=== PATIENT | female | born 1985 | race African-American/Black ===

== ENCOUNTER 2018-02-28 23:08 | Day surgery (SDC) | payer MEDICARE, MEDICAID ==
[~2018-02-28] VITALS: Ht 160 cm; Wt 108.0 kg
[~2018-02-28 23:08] MED LIST: BACT800T5 PO; DIFL150T PO; LABE200T2 PO; MECL25CH PO; METF500 PO; OMNI1SUS EACH EYE
[2018-02-28 23:12] VITALS: BP 136/68; PULSE 101; RESP 18; TEMP 98.6; O2SAT 99
[2018-02-28] MEDS ORDERED: METF500T PO (23:20)
[2018-02-28] MEDS ORDERED: LISI10TA3 PO (23:20)
[2018-02-28 23:23] VITALS: RESP 18; O2SAT 99
[2018-02-28] MEDS ORDERED: MORPHINE SULFATE 2 MG/ML SYRINGE IV PUSH ONE (23:30)
[2018-02-28] MEDS ORDERED: SODIUM CHLORIDE 0.9% FLUSH 10 ML FLUSH IV FLUSH PRN (23:30)
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
[2018-02-28] MEDS ORDERED: TETANUS/DIPHTHERIA TOXOID ADULT 0.5 ML VIAL IM ONE (23:45)
[2018-02-28] MEDS ORDERED: ceFAZolin 2 GM PREMIX 50 ML ONE (23:45)
[2018-02-28] MEDS ORDERED: ceFAZolin 2 GM PREMIX 50 ML IV ONE (23:45)
[2018-03-01 00:02] LABS: BICARBONATE 25.7 MEQ/L (21.0-32.0); CALCIUM 8.6 MG/DL (8.5-10.1); CREATININE 0.9 MG/DL (0.50-1.00)
[2018-03-01 00:04] LABS: INTERNATIONAL NORMALIZED RATIO 1.1 RATIO; PROTHROMBIN TIME - PATIENT 10.8 SEC (9.8-11.6)
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
[2018-03-01 01:40] LABS: AUTOMATED NEUTROPHIL # 4.3 TH/MM3 (1.8-7.7); BASOPHIL % 0.4 % (0.0-2.0); EOSINOPHIL # 0.1 TH/MM3 (0-0.4); EOSINOPHIL % 1.5 % (0.0-4.0); HEMATOCRIT 29.3 % (35.0-46.0); HEMOGLOBIN 9.3 GM/DL (11.6-15.3); LYMPH % 36.7 % (9.0-44.0); LYMPHOCYTE # 2.9 TH/MM3 (1.0-4.8); MEAN CELL VOLUME 78.1 FL (80.0-100.0); MEAN CORPUSCULAR HEMOGLOBIN 24.9 PG (27.0-34.0); MEAN CORPUSCULAR HGB CONC 31.9 % (32.0-36.0); MEAN PLATELET VOLUME 7.4 FL (7.0-11.0); MONO % 7.6 % (0.0-8.0); MONOCYTE # 0.6 TH/MM3 (0-0.9); NEUT % 53.8 % (16.0-70.0); PLATELET COUNT 411 TH/MM3 (150-450); RED BLOOD COUNT 3.75 MIL/MM3 (4.00-5.30); RED CELL DISTRIBUTION WIDTH 16.9 % (11.6-17.2)
[2018-03-01 04:00] VITALS: BP 131/59; PULSE 70; RESP 15; O2SAT 99
[2018-03-01] MEDS ORDERED: BALANCED SALT SOLN OPHT IRRIG 15 ML BTL ONE ×2 (04:39→04:41)
[2018-03-01] MEDS ORDERED: methylPREDNISolone SOD SUCC 40 MG/1 ML VIAL ONE (04:39)
[2018-03-01] MEDS ORDERED: VANCOMYCIN 500 MG VIAL ONE (04:39)
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
[2018-03-01] MEDS ORDERED: PROPOFOL 200 MG/20 ML AMP IV ONE (05:15)
[2018-03-01] MEDS ORDERED: LIDOCAINE HCL 1% PF 5 ML SYRINGE OTHER ONE (05:15)
[2018-03-01] MEDS ORDERED: PHENYLEPH/NS 1000 MCG/10 ML SYR IV ONE (05:15)
[2018-03-01] MEDS ORDERED: ROCURONIUM INJ 50 MG/5 ML SYRINGE IV PUSH ONE (05:15)
[2018-03-01] MEDS ORDERED: NEOSTIGMINE 5 MG/5 ML SYRINGE IV PUSH ONE (05:15)
[2018-03-01] MEDS ORDERED: ePHEDrine/NS 25 MG/5 ML SYRINGE IV ONE (05:15)
[2018-03-01] MEDS ORDERED: ceFAZolin INJ 1,000 MG VIAL IV ONE (05:15)
[2018-03-01] MEDS ORDERED: GLYCOPYRROLATE 1 MG/5 ML SYRINGE IV PUSH ONE (05:15)
[2018-03-01] MEDS ORDERED: ONDANSETRON HCL 4 MG/2 ML VIAL IV ONE (05:15)
[2018-03-01] MEDS ORDERED: TOBRAMYCIN 0.3%/DEXAMETHASONE 0.1% OPHT SUSP 5 ML BTL ONE (06:24)
[2018-03-01] MEDS ORDERED: GENTAMICIN SULFATE 80 MG/2 ML VIAL ONE (06:25)
[2018-03-01] MEDS ORDERED: TOBRAMYCIN/DEXAMETHASONE OPTH OINT 3.5 GM TUBE ONE (06:54)
--- NOTE | 2018-03-01 07:08 | PD.OP ---
Operative Report Date of Surgery: Mar 01, 2018 Preoperative Diagnosis: (1) Ruptured globe of left eye Postoperative Diagnosis: (1) Ruptured globe of left eye Procedure: repair of ruptured globe left eye Surgeon: Isabela García Drive In Teller(s): none Operation and Findings: The patient was consented for surgery and taken back to the operating room. She was put under general anesthesia and prepped and draped in a sterile fashion. A wire lid speculum was placed in the left eye. A corneal transplant dehiscence was seen from 4 o'clock to 11 o'clock. The wound was irrigated with TobraDex drops. [place] was placed in the eye to reform the globe. 10-0 interrupted nylon sutures were placed to close the corneal wound. The wound was found to be watertight. Subconjunctival Decadron and gentamicin was injected at the end of the case. An eye patch and shield were placed over the eye. The patient was sent to PACU in stable condition. Isabela García MD Mar 01, 2018 07:08
--- NOTE | 2018-03-01 07:10 | HHI.PR ---
Subjective Remarks s/p ruptured globe repair. Objective Vital Signs Date Time Temp Pulse Resp B/P (MAP) Pulse Ox O2 Delivery O2 Flow Rate FiO2 03/01/18 05:10 03/01/18 04:00 70 15 131/59 (83) 99 Room Air 02/28/18 23:23 18 99 Room Air 02/28/18 23:12 98.6 101 18 136/68 (90) 99 Result Diagram: 03/01/18 0120 02/28/18 2330 Assessment and Plan Problem List: (1) Ruptured globe of left eye ICD Codes: S05.32XA - Ocular laceration without prolapse or loss of intraocular tissue, left eye, initial encounter Status: Acute Plan: Due to dehiscence of corneal transplant. s/p repair. Patient to keep patch over eye until she follows up on Saturday at 830am in the office. Ok to be discharged on Augmentin 875 BID x 10 days and Percocet 5/325 PRN. Problem Qualifiers (1) Ruptured globe of left eye: Qualified Codes: S05.32XA - Ocular laceration without prolapse or loss of intraocular tissue, left eye, initial encounter Isabela García MD Mar 01, 2018 07:10
[2018-03-01] MEDS ORDERED: DO NOT ADM ANY ANTICOAGULANT DRUGS PRN (07:23)
[2018-03-01] MEDS ORDERED: AUGM875T3 PO (08:04)
[2018-03-01] MEDS ORDERED: PERC5TAB12 PO (08:04)
[2018-03-01 08:07] VITALS: BP 123/61; PULSE 69; RESP 14; TEMP 98.7; O2SAT 94
== END 2018-03-01 08:30 | disposition home or self-care (01) ==
LOC: NEPE 23:08 → HSDC 03-01 05:14 → HPAC 03-01 05:37 → HSDC 03-01 08:30
PROVIDERS: ATTEND Ophthalmology
DX: S05.32XA Ocular laceration without prolapse or loss of intraocular tissue, left eye, initial encounter (principal); S09.90XA Unspecified injury of head, initial encounter; E11.9 Type 2 diabetes mellitus without complications; I10 Essential (primary) hypertension; Z79.84 Long term (current) use of oral hypoglycemic drugs; Y09 Assault by unspecified means
CPT/HCPCS: 00140; 65285; 70450; 70486; 72131; 80048; 82948; 84703; 85025; 85610; 85730; 90471; 90714; 96365; 96375; 99285; J0690; J1580; J2270; J2370; J2405; J2710; J2920; J3010; J3370

== ENCOUNTER 2018-04-02 17:31 | Emergency (ER) | payer MEDICARE, MEDICAID ==
[~2018-04-02 17:31] MED LIST changes: +AUGM875T3 PO; -BACT800T5 PO; -DIFL150T PO; -LABE200T2 PO; +LISI10TA3 PO; -MECL25CH PO; -METF500 PO; +METF500T PO; -OMNI1SUS EACH EYE; +PERC5TAB12 PO
[2018-04-02 17:49] VITALS: BP 151/82; PULSE 70; RESP 18; TEMP 98.9; O2SAT 100
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
[2018-04-02] MEDS ORDERED: PRED1SUS LEFT EYE (20:04)
[2018-04-02] MEDS ORDERED: ATRO1SOL11 LEFT EYE (20:04)
[2018-04-02] MEDS ORDERED: VIGA0.5D LEFT EYE (20:04)
[2018-04-02] MEDS ORDERED: AK-T0.3S LEFT EYE (20:04)
[2018-04-02] MEDS ORDERED: TIMO1SOL9 EACH EYE (20:04)
[2018-04-02] MEDS ORDERED: ACETAMINOPHEN/HYDROcodone 325 MG/5 MG TAB PO ONE (20:15)
== END 2018-04-02 20:47 | disposition home or self-care (01) ==
LOC: NEPD 17:31
DX: H57.12 Ocular pain, left eye (principal); H54.62 Unqualified visual loss, left eye, normal vision right eye
CPT/HCPCS: 99283